=== PATIENT | female | born 1955 | race Hispanic/Latino ===

== ENCOUNTER 2016-10-22 10:33 | Outpatient (CLI) | payer BC ==
--- NOTE | 2016-10-22 15:02 | Mammography Report ---
BILATERAL DIGITAL SCREENING MAMMOGRAM with CAD: 10/22/16 10:33:00 CLINICAL: Routine screening. COMPARISON:10/08/13 [place] mammogram and 03/24/12 [facility] mammogram FINDINGS: The breasts are almost entirely fatty. No mass, architectural distortion or suspicious calcifications. IMPRESSION: No mammographic evidence of malignancy. BI-RADS CATEGORY: 1 - - Negative RECOMMENDATION: Routine mammographic screening in one year. COMMENT: Patient follow-up letters are generated by our [employer] application.
== END 2016-10-22 10:34 | disposition home or self-care (01) ==
LOC: SPVWC 10:33
PROVIDERS: ATTEND Obstetrics & Gynecology
DX: Z12.31 Encounter for screening mammogram for malignant neoplasm of breast (principal)
CPT/HCPCS: 77067; G0202

== ENCOUNTER 2020-06-05 10:37 | Outpatient (CLI) | payer BC ==
--- NOTE | 2020-06-05 16:02 | Mammography Report ---
DIGITAL SCREENING MAMMOGRAM WITH CAD, 06/05/2020 CLINICAL INFORMATION / INDICATION: Routine screening mammography. TECHNIQUE: Digital bilateral 2D mammography was obtained in the craniocaudal and mediolateral obliqu e projections. This examination was interpreted with the benefit of Computer-Aided Detection analysis . COMPARISON: 08/01/2018, 10/22/2016 FINDINGS: Breast Density: The breasts are almost entirely fatty. No dominant mass, suspicious calcifications, or architectural distortion in either breast. IMPRESSION: No mammographic evidence of malignancy. Follow up recommendation: Routine yearly BI-RADS Category 1: Negative. A "normal" or negative report should not discourage follow up or biopsy of a clinically significant f inding. A written summary of these findings will be mailed to the patient. The patient will be entered into a mammography reporting system which will generate a reminder letter for the patient's next appointmen t at the appropriate interval. The [employer] recommends yearly mammograms starting at age 40 and continuing as l hans as a woman is in good health. Breast MRI is recommended for women with an approximate 20-25% or greater lifetime risk of breast cancer, including women with a strong family history of breast or ova mario cancer or who have been treated for Hodgkin's disease. Signer Name: Bonnie Hoang MD Signed: 06/05/2020 3:58 PM Workstation Name: [id number]
== END 2020-06-05 10:38 | disposition home or self-care (01) ==
LOC: SPVWC 10:37
PROVIDERS: ATTEND Obstetrics & Gynecology
DX: Z12.31 Encounter for screening mammogram for malignant neoplasm of breast (principal)
CPT/HCPCS: 77067